=== PATIENT | female | born 1960 | race Caucasian/White ===

== ENCOUNTER 2019-06-01 09:58 | Emergency (ER) | payer OTHER ==
[~2019-06-01] VITALS: Ht 152.4 cm; Wt 59.0 kg
[2019-06-01 10:22] VITALS: BP 113/78
--- NOTE | 2019-06-01 10:22 | NUR ---
Patient ambulated to bed 4. RN evaluating patient at bedside.
--- NOTE | 2019-06-01 10:30 | NUR ---
c/o cold symptoms x4 days, cough, congestion, body pain since 05/28.pt awake ,alert, ambulatory with steady gait.sce, cbs,afebrile. hx high cholesterol
--- NOTE | 2019-06-01 10:38 | NUR ---
dr iraheta at bedside.
--- NOTE | 2019-06-01 10:38 | NUR ---
Dr. Ferrera is evaluating the patient at bedside.
--- NOTE | 2019-06-01 11:52 | NUR ---
Patient discharged with v/s stable. Written and verbal after care instructions given and explained cough. Patient alert, oriented and verbalized understanding of instructions. Ambulatory with steady gait. All questions addressed prior to discharge. ID band removed. Patient advised to follow up with PMD. Rx of albuterol and tessalon given. Patient educated on indication of medication including possible reaction and side effects. Opportunity to ask questions provided and answered.
[2019-06-01 11:53] VITALS: BP 120/78
== END 2019-06-01 11:52 | disposition home or self-care (01) ==
LOC: MED 09:58
DX: R05 Cough (principal); R09.89 Other specified symptoms and signs involving the circulatory and respiratory systems; M79.10 Myalgia, unspecified site; Z90.49 Acquired absence of other specified parts of digestive tract; Z98.890 Other specified postprocedural states
CPT/HCPCS: 71045; 99283; Q0092

== ENCOUNTER 2020-07-25 20:44 | Emergency (ER) | payer OTHER ==
[~2020-07-25] VITALS: Ht 152.4 cm; Wt 63.5 kg
[2020-07-25 20:45] VITALS: BP 150/79
[2020-07-25] MEDS ORDERED: TETRACAINE HCL/PF 0.5% OPTH 4 ML BTL OP ONE (21:10)
[2020-07-25] MEDS ORDERED: TOMOMETER 1 DEV DEV MC ONE ×2 (21:15→21:20)
[2020-07-25 21:38] VITALS: BP 150/79
== END 2020-07-25 21:38 | disposition home or self-care (01) ==
LOC: MED 20:44
DX: H11.32 Conjunctival hemorrhage, left eye (principal); R51.9 Headache, unspecified
CPT/HCPCS: 99281